=== PATIENT | male | born 1970 | race Caucasian/White ===

== ENCOUNTER 2017-10-26 18:50 | Emergency (ER) | payer OTHER ==
[2017-10-26 19:12] VITALS: BP 160/79
--- NOTE | 2017-10-26 19:39 | XRAY Preliminary Report ---
Exam: XR HAND 3 VIEW LT IMPRESSION: 1. Fourth proximal phalanx fracture. [facility] SITE ID: [id number]
--- NOTE | 2017-10-26 19:39 | XRAY Report ---
EXAM: LEFT HAND RADIOGRAPHY EXAM DATE: 10/26/2017 07:16 PM. CLINICAL HISTORY: Injury to L ring finger/swollen/bruising. COMPARISON: None. TECHNIQUE: 3 views. FINDINGS: Bones: There is an oblique fracture of the fourth proximal phalanx diaphysis. Fracture does not appea r to extend to the articular surface. Joints: No subluxation or dislocation. Soft Tissues: There is soft tissue swelling of the fourth digit. IMPRESSION: 1. Fourth proximal phalanx fracture. [facility] Referring Provider Line: [phone] SITE ID: [id number]
--- NOTE | 2017-10-26 20:52 | ED Physician Documentation ---
PD HPI UPPER EXT INJURY - Stated complaint Stated Complaint: LT FINGER LAC - Chief complaint Chief Complaint: Trauma Ext - History obtained from History obtained from: Patient - History of Present Illness Location: Left, Finger (middle) Type of injury: Twist (dog leash pulled and causing twisting of the finger. Patient says it was crooked and he straightened it immediately. Has pain and bruising. Thought it dislocated and was wondering about it so bruised today.) Timing - onset: Yesterday Timing - details: Abrupt onset, Still present Worsened by: Moving, Palpating Associated symptoms: Swelling, Discolored (bruising). No: Weakness, Numbness Similar symptoms before: Has not had sx before Recently seen: Not recently seen Review of Systems Skin: denies: Abrasion (s), Laceration (s) Neurologic: denies: Focal weakness, Numbness PD PAST MEDICAL HISTORY - Past Medical History Past Medical History: No - Past Surgical History Past Surgical History: Yes General: Appendectomy Ortho: Other - Present Medications Home Medications: Ambulatory Orders Medication Instructions Recorded Confirmed No Known Home Medications [No 10/26/17 10/26/17 Known Home Medications] - Allergies Allergies/Adverse Reactions: Allergies Allergy/AdvReac Type Severity Reaction Status Date / Time No Known Drug Allergies Allergy Verified 10/26/17 19:12 - Social History Does the pt smoke?: No Smoking Status: Never smoker Does the pt drink ETOH?: Yes ETOH Use: Beer Does the pt have substance abuse?: No - Immunizations Immunizations are current?: Yes - POLST Patient has POLST: No PD ED PE NORMAL - General General: Alert and oriented X 3, Well developed/nourished - Derm Derm: Normal color, Warm and dry - Extremities Extremities: Other (pain with ROM of the finger. Swelling and bruising of the middle phalanx and the PIP joint with bruising but not tender to the dorsum of the distal hand. ) - Neuro Neuro: No motor deficit, No sensory deficit Results - Vitals Vitals: Oxygen O2 Source Room air - Rads (name of study) finger Radiology: Prelim report reviewed, EMP read contemporaneously (oblique fracture of middle phalanx, nonarticular and not angulated. ) PD MEDICAL DECISION MAKING - ED course Complexity details: considered differential, d/w patient Departure - Departure Disposition: 01 Home, Self Care Clinical Impression: Finger fracture, left Qualifiers: Encounter type: initial encounter Finger: ring finger Fracture type: closed Phalanx: middle Fracture alignment: nondisplaced Qualified Code(s): S62.655A - Nondisplaced fracture of medial phalanx of left ring finger, initial encounter for closed fracture Condition: Stable Record reviewed to determine appropriate education?: Yes Instructions: ED Fx Finger Closed Follow-Up: [facility] [Provider Group] Lenin Keith MD [Provider Admit Priv/Credential] - Comments: He is a finger splint most all the time for the next 4 weeks. It is okay to have it removed for cleaning and skin care. Have the splint on the rest of the time including sleep. Follow-up in about 1-1 1/2 weeks for recheck to ensure its healing in the right position. Call the orthopedic office tomorrow for an appointment. Tylenol or ibuprofen if needed for pains. At about week and a half timeframe if it is healing okay, they will likely have you start doing some range of motion exercises to reduce stiffening of the joint and tendons. However follow-up recheck is a good idea before starting that. Discharge Date/Time: 10/26/17 21:42
== END 2017-10-26 21:42 | disposition home or self-care (01) ==
LOC: ED 18:50
DX: S61.213A Laceration without foreign body of left middle finger without damage to nail, initial encounter (principal); X50.9XXA Other and unspecified overexertion or strenuous movements or postures, initial encounter
CPT/HCPCS: 99283